=== PATIENT | female | born 1955 | race Caucasian/White ===

== ENCOUNTER 2020-08-12 14:15 | Outpatient (REF) | payer OTHER, SELFPAY ==
--- NOTE | 2020-08-12 14:19 | FL_ITS ---
EXAMINATION: FL BARIUM SWALLOW CLINICAL INFORMATION: Dysphagia COMPARISON: None TECHNIQUE: Patient's swallowing mechanism was assessed in conjunction with speech therapist utilizing fluoroscopic evaluation. Multiple cine loops were recorded. FINDINGS: Anterior cervical fusion hardware is noted at C5-C6. Various consistencies of barium were administered orally. No evidence of tracheal aspiration or laryngeal penetration was noted. No retention of barium was noted in the vallecula or piriform sinuses. Occasional premature spillage of barium in vallecula was noted. FLUOROSCOPY TIME: 1 minute DOSE AREA PRODUCT: 0.922 Gy-cm2 (terry centimeter squared) IMPRESSION: No evidence of laryngeal penetration or tracheal aspiration was noted. Follow speech therapist's notes for detailed description.
== END 2020-08-12 14:16 | disposition home or self-care (01) ==
LOC: HO.XRAY 14:15
PROVIDERS: Visit Provider Nurse Practitioner
DX: R13.12 Dysphagia, oropharyngeal phase (principal); G35 Multiple sclerosis
CPT/HCPCS: 74230; 92611

== ENCOUNTER → 2020-10-28 09:41 | Outpatient (BNVA) | payer OTHER, SELFPAY | PROVIDERS: Visit Provider Nurse Practitioner | DX: K21.9 Gastro-esophageal reflux disease without esophagitis (principal); K58.2 Mixed irritable bowel syndrome; R13.12 Dysphagia, oropharyngeal phase | CPT/HCPCS: Q3014 ==

== ENCOUNTER → 2021-01-25 10:46 | Outpatient (BNVA) | payer OTHER, SELFPAY | PROVIDERS: PCP Student in an Organized Health Care Education/Training Program; Visit Provider Nurse Practitioner | DX: Z13.89 Encounter for screening for other disorder (principal) | CPT/HCPCS: Q3014 ==

== ENCOUNTER → 2021-04-19 09:58 | Outpatient (BNVA) | payer OTHER, SELFPAY | PROVIDERS: Visit Provider Nurse Practitioner | DX: K59.04 Chronic idiopathic constipation (principal); K21.9 Gastro-esophageal reflux disease without esophagitis; R13.12 Dysphagia, oropharyngeal phase; R10.9 Unspecified abdominal pain | CPT/HCPCS: Q3014 ==

== ENCOUNTER → 2021-10-18 14:03 | Outpatient (BNVA) | payer OTHER, SELFPAY | PROVIDERS: Visit Provider Nurse Practitioner | DX: K59.04 Chronic idiopathic constipation (principal); K21.9 Gastro-esophageal reflux disease without esophagitis; K30 Functional dyspepsia; R13.12 Dysphagia, oropharyngeal phase; R10.9 Unspecified abdominal pain | CPT/HCPCS: 99212 ==

== ENCOUNTER → 2021-12-30 11:43 | Outpatient (BNVA) | payer OTHER, SELFPAY | PROVIDERS: Visit Provider Nurse Practitioner | DX: K59.04 Chronic idiopathic constipation (principal); K30 Functional dyspepsia; K21.9 Gastro-esophageal reflux disease without esophagitis | CPT/HCPCS: 99212 ==

== ENCOUNTER → 2022-01-13 12:41 | Outpatient (BNVA) | payer OTHER, SELFPAY | PROVIDERS: Visit Provider Nurse Practitioner | DX: K59.04 Chronic idiopathic constipation (principal); K58.2 Mixed irritable bowel syndrome; K30 Functional dyspepsia; K14.0 Glossitis; E11.22 Type 2 diabetes mellitus with diabetic chronic kidney disease; I12.9 Hypertensive chronic kidney disease with stage 1 through stage 4 chronic kidney disease, or unspecified chronic kidney disease; N18.9 Chronic kidney disease, unspecified; Z87.891 Personal history of nicotine dependence; Z88.8 Allergy status to other drugs, medicaments and biological substances; Z88.6 Allergy status to analgesic agent; Z88.0 Allergy status to penicillin; Z91.013 Allergy to seafood | CPT/HCPCS: 99212 ==

== ENCOUNTER 2022-02-24 08:17 | Day surgery (SDC) | payer OTHER, SELFPAY ==
[2022-02-18 13:58] VITALS: BMI 20.9
--- NOTE | 2022-02-23 11:53 | P.CONAN_ITS ---
Documented by User: Dionne Hugo NP 02/23/22 11:54 HPI - Anesthesia Eval Consult details Narrative: 66yo F for Upper Endoscopy and Colonoscopy *Multiple Allergies* PMFSH Active Problems Active Problems: All Active Problems (Updated 10/18/21 @ 15:08 by JOSH Perez) Oropharyngeal dysphagia (Acute) Chronic idiopathic constipation (Acute) Abdominal cramping (Acute) Delayed gastric emptying (Acute) GERD (gastroesophageal reflux disease) (Acute) Past Medical History Medical History Asthma Bipolar 1 disorder Chronic renal disease Diabetes Elevated cholesterol Fibromyalgia Gastroparesis GERD (gastroesophageal reflux disease) History of bronchiolitis obliterans with organizing pneumonia HTN (hypertension) Hx MRSA infection Hx of cervical cancer Hx of Clostridium difficile infection Irritable bowel syndrome Irritable bowel syndrome with both constipation and diarrhea Lung mass Multiple sclerosis Osteopenia Rheumatoid arthritis Family History Family History Other Diabetes Heart problem Skin cancer Surgical History Surgical History (Updated 02/18/22 @ 13:43 by Dolly Desai RN) History of carpal tunnel release History of esophagogastroduodenoscopy (EGD) History of Luan fundoplication History of partial colectomy History of repair of hip fracture Hx of colonoscopy Hx of cornea transplant Hx of discectomy Hx of hysterectomy Hx of knee surgery Hx of repair of left rotator cuff Hx of splenectomy Social History Social History Alcohol intake: current Alcohol intake frequency: holidays/special occasions only Patient Tobacco Use Status: Former Tobacco user Tobacco use type: Cigarette Use of substances other than those prescribed or required for medical reasons: Yes Substance Use Type: Marijuana Advance Directives Information Provided: Yes Advance Directives on File: Yes Advance Directives Date on File: 03/28/13 Meds Allergies Allergy/AdvReac Type Severity Reaction Status Date / Time clams Allergy Intermediate Hives Verified 02/18/22 13:44 methylprednisolone Allergy Intermediate HIVES Verified 02/18/22 13:44 [From Solu-Medrol] morphine [MORPHINE] Allergy Intermediate HIVES Verified 02/18/22 13:44 Penicillins Allergy Intermediate HIVES Verified 02/18/22 13:44 prednisone [Prednisone] Allergy Intermediate HIVES Verified 02/18/22 13:44 terbinafine [Lamisil] Allergy Intermediate Rash Verified 02/18/22 13:44 From TORADOL Allergy Intermediate HIVES Uncoded 02/18/22 13:44 Home Medications Medication Instructions Recorded Confirmed Last Taken Type acetaminophen 325 mg tablet 2 tab PO Q4H PRN 10/02/20 10/02/20 Unknown History albuterol sulfate 90 mcg/actuation 1 puff PO QID PRN 10/02/20 10/02/20 Unknown History aerosol inhaler cyclobenzaprine 5 mg tablet 1 tab PO BEDTIME 10/02/20 10/02/20 Unknown History diclofenac sodium 1 % topical gel g TOPICAL QID 10/02/20 Unknown History divalproex 250 mg tablet,extended 2 tab PO DAILY 10/02/20 10/02/20 Unknown History release 24 hr escitalopram oxalate 20 mg tablet 1 tab PO DAILY 10/02/20 10/02/20 Unknown History fluticasone 500 mcg-salmeterol 50 1 puff PO BID 10/02/20 10/02/20 Unknown Histo ry mcg/dose blistr powdr for inhalation (Wixela Inhub) fluticasone propionate 50 1 spray INTRANASAL DAILY 10/02/20 10/02/20 Unknown History mcg/actuation nasal spray,suspension insulin aspart U-100 100 unit/mL 10 - 35 unit SUBCUT 10/02/20 Unknown History (3 mL) subcutaneous pen (Novolog Flexpen U-100 Insulin aspart) insulin glargine 100 unit/mL (3 42 unit SUBCUT BEDTIME 10/02/20 10/02/20 Unknown History mL) subcutaneous pen (Lantus Solostar U-100 Insulin) ketotifen fumarate 0.025 % (0.035 1 drp OPHTHALMIC (EYE) Q12H 10/02/20 10/02/20 Unknown History %) eye drops lisinopril 5 mg tablet 1 tab PO DAILY 10/02/20 10/02/20 Unknown History loratadine 10 mg tablet 1 tab PO DAILY 10/02/20 10/02/20 Unknown History lorazepam 1 mg tablet 1 tab PO BEDTIME 10/02/20 10/02/20 Unknown History metformin 500 mg tablet,extended 1 tab PO BID 10/02/20 10/02/20 Unknown History release 24 hr multivitamin (Daily-Darek) 1 tab PO DAILY 10/02/20 10/02/20 Unknown History quetiapine 100 mg tablet 1 tab PO BEDTIME 10/02/20 10/02/20 Unknown History rosuvastatin 20 mg tablet 1 tab PO DAILY 10/02/20 10/02/20 Unknown History zolpidem 10 mg tablet 1 tab PO BEDTIME PRN 10/02/20 10/02/20 Unknown History calcium carbonate 500 mg-vitamin 1 tab PO BID 01/13/22 Unknown History D3 10 mcg (400 unit) tablet (Calcium 500 With D) dulaglutide 0.75 mg/0.5 mL 0.75 mg SUBCUT QWEEK 01/13/22 Unknown History subcutaneous pen injector (Trulicity) gabapentin 100 mg capsule 100 mg PO TID 01/13/22 Unknown History multivitamin with folic acid 400 1 tab PO DAILY 01/13/22 Unknown History mcg tablet (Daily-Darek (with folic acid)) tiotropium bromide 1.25 2 puff INHALATION DAILY 01/13/22 Unknown History mcg/actuation mist for inhalation (Spiriva Respimat) Exam Exam Date and Time: February 23, 2022 1153 Height,Weight and Vital Signs: Height 5 ft 4 in Weight 55.338 kg Assessment and Plan Assessment Anesthesia Assessment: Chart Reviewed Documented by User: Madeleine Go MD 02/24/22 08:28 [facility] Past Medical History Medical History Asthma Bipolar 1 disorder Chronic renal disease Diabetes Elevated cholesterol Fibromyalgia Gastroparesis GERD (gastroesophageal reflux disease) History of bronchiolitis obliterans with organizing pneumonia HTN (hypertension) Hx MRSA infection Hx of cervical cancer Hx of Clostridium difficile infection Irritable bowel syndrome Irritable bowel syndrome with both constipation and diarrhea Lung mass Multiple sclerosis Osteopenia Rheumatoid arthritis Functional capacity: uses cane/walker Patient : No Family History Family History Other Diabetes Heart problem Skin cancer Family history of problems with anesthesia: No Surgical History Surgical History (Updated 02/18/22 @ 13:43 by Dolly Desai RN) History of carpal tunnel release History of esophagogastroduodenoscopy (EGD) History of Luan fundoplication History of partial colectomy History of repair of hip fracture Hx of colonoscopy Hx of cornea transplant Hx of discectomy Hx of hysterectomy Hx of knee surgery Hx of repair of left rotator cuff Hx of splenectomy History of Problems with Anesthesia: No Social History Social History Alcohol intake: current Alcohol intake frequency: holidays/special occasions only Patient Tobacco Use Status: Former Tobacco user Tobacco use type: Cigarette Use of substances other than those prescribed or required for medical reasons: Yes Substance Use Type: Marijuana Advance Directives Information Provided: Yes Advance Directives on File: Yes Advance Directives Date on File: 03/28/13 Meds Allergies Allergy/AdvReac Type Severity Reaction Status Date / Time clams Allergy Intermediate Hives Verified 02/18/22 13:44 methylprednisolone Allergy Intermediate HIVES Verified 02/18/22 13:44 [From Solu-Medrol] morphine [MORPHINE] Allergy Intermediate HIVES Verified 02/18/22 13:44 Penicillins Allergy Intermediate HIVES Verified 02/18/22 13:44 prednisone [Prednisone] Allergy Intermediate HIVES Verified 02/18/22 13:44 terbinafine [Lamisil] Allergy Intermediate Rash Verified 02/18/22 13:44 From TORADOL Allergy Intermediate HIVES Uncoded 02/18/22 13:44 Home Medications Medication Instructions Recorded Confirmed Last Taken Type acetaminophen 325 mg tablet 2 tab PO Q4H PRN 10/02/20 10/02/20 Unknown History albuterol sulfate 90 mcg/actuation 1 puff PO QID PRN 10/02/20 10/02/20 Unknown History aerosol inhaler cyclobenzaprine 5 mg tablet 1 tab PO BEDTIME 10/02/20 10/02/20 Unknown History diclofenac sodium 1 % topical gel g TOPICAL QID 10/02/20 Unknown History divalproex 250 mg tablet,extended 2 tab PO DAILY 10/02/20 10/02/20 Unknown History release 24 hr escitalopram oxalate 20 mg tablet 1 tab PO DAILY 10/02/20 10/02/20 Unknown History fluticasone 500 mcg-salmeterol 50 1 puff PO BID 10/02/20 10/02/20 Unknown History mcg/dose blistr powdr for inhalation (Wixela Inhub) fluticasone propionate 50 1 spray INTRANASAL DAILY 10/02/20 10/02/20 Unknown History mcg/actuation nasal spray,suspension insulin aspart U-100 100 unit/mL 10 - 35 unit SUBCUT 10/02/20 Unknown History (3 mL) subcutaneous pen (Novolog Flexpen U-100 Insulin aspart) insulin glargine 100 unit/mL (3 42 unit SUBCUT BEDTIME 10/02/20 10/02/20 Unknown History mL) subcutaneous pen (Lantus Solostar U-100 Insulin) ketotifen fumarate 0.025 % (0.035 1 drp OPHTHALMIC (EYE) Q12H 10/02/20 10/02/20 Unknown History %) eye drops lisinopril 5 mg tablet 1 tab PO DAILY 10/02/20 10/02/20 Unknown History loratadine 10 mg tablet 1 tab PO DAILY 10/02/20 10/02/20 Unknown History lorazepam 1 mg tablet 1 tab PO BEDTIME 10/02/20 10/02/20 Unknown History metformin 500 mg tablet,extended 1 tab PO BID 10/02/20 10/02/20 Unknown History release 24 hr multivitamin (Daily-Darek) 1 tab PO DAILY 10/02/20 10/02/20 Unknown History quetiapine 100 mg tablet 1 tab PO BEDTIME 10/02/20 10/02/20 Unknown History rosuvastatin 20 mg tablet 1 tab PO DAILY 10/02/20 10/02/20 Unknown History zolpidem 10 mg tablet 1 tab PO BEDTIME PRN 10/02/20 10/02/20 Unknown History calcium carbonate 500 mg-vitamin 1 tab PO BID 01/13/22 Unknown History D3 10 mcg (400 unit) tablet (Calcium 500 With D) dulaglutide 0.75 mg/0.5 mL 0.75 mg SUBCUT QWEEK 01/13/22 Unknown History subcutaneous pen injector (Trulicity) gabapentin 100 mg capsule 100 mg PO TID 01/13/22 Unknown History multivitamin with folic acid 400 1 tab PO DAILY 01/13/22 Unknown History mcg tablet (Daily-Darek (with folic acid)) tiotropium bromide 1.25 2 puff INHALATION DAILY 01/13/22 Unknown History mcg/actuation mist for inhalation (Spiriva Respimat) Exam Airway Mallampati Class: II TM Dist: >3cm Neck ROM: Full Heart: RRR Lungs: CTA Assessment and Plan Final Anesthetic Review Family History of Problems with Anesthesia: No History of Problems with Anesthesia: No ASA Class: III Final Preanesthetic Review: No Changes in Pt Med Stat, Meds/Allgs Chart Reviewed, Consent Obtained/Reviewed and Anes Risks/Benef Reviewed Patient Risk: Low Procedure Risk: Low Anesthetic Plan Anesthetic Plan: MAC: Disposition: Standard PACU
[2022-02-24 08:39] VITALS: BP 146/80; PULSE 84; RESP 16; TEMP 36.3; O2SAT 98
[2022-02-24] MEDS: Lactated Ringers 1,000 ML 100 ML IVCONT (08:49)
[2022-02-24 08:54] LABS: Glucose, Whole Blood 92 mg/dL (60-115)
--- NOTE | 2022-02-24 09:07 | P.HPSUR_ITS ---
Pre-Procedural Eval Section A Date of Service: 02/24/22 Section B Chief Complaint: Functional dyspepsia,abnormal bowel habit Relevant Family History (Specify if Yes): No Relevant Social History: Other (specify) (thc use) Present Medications: see Short Stay Collaborative assessment Medical History: Significant History (Asthma Bipolar 1 disorder Chronic renal disease Diabetes Elevated cholesterol Fibromyalgia Gastroparesis GERD (gastroesophageal reflux disease) History of bronchiolitis obliterans with organizing pneumonia HTN (hypertension) Hx MRSA infection Hx of cervical cancer Hx of Clostridium difficile infecti) History of Previous Operations: Relevant previous surgery/procedure and date(s) (History of carpal tunnel release History of esophagogastroduodenoscopy (EGD) H istory of Luan fundoplication History of partial colectomy History of repair of hip fracture Hx of colonoscopy Hx of cornea transplant Hx of discectomy Hx of hysterectomy Hx of knee surgery Hx of repair of left rotator c) Allergies: Allergies Allergy/AdvReac Type Severity Reaction Status Date / Time clams Allergy Intermediate Hives Verified 02/18/22 13:44 methylprednisolone Allergy Intermediate HIVES Verified 02/18/22 13:44 [From Solu-Medrol] morphine [MORPHINE] Allergy Intermediate HIVES Verified 02/18/22 13:44 Penicillins Allergy Intermediate HIVES Verified 02/18/22 13:44 prednisone [Prednisone] Allergy Intermediate HIVES Verified 02/18/22 13:44 terbinafine [Lamisil] Allergy Intermediate Rash Verified 02/18/22 13:44 From TORADOL Allergy Intermediate HIVES Uncoded 02/18/22 13:44 Review of Systems Sugical H&P ROS: Negative: Constitution, Cardiovascular, Respiratory, Neurological, Psychiatric, Hem-Onc, Allergic/Immunologic, Gastrointestinal, Genitourinary, Musculoskeletal, Integumentary, Endocrine and Eyes/Ears/Nose/Throat Exam Surgical H&P Exam: Normal: HEENT, Normal: Heart, Normal: Lungs, Normal: Extremities, Normal: Abdomen, Normal: Skin and Normal: Neurological Plan Diagnosis/Plan: Unchanged I have reviewed the history and physical and performed a pertinent physical examination on my patient. No changes have occurred unless specified.
--- NOTE | 2022-02-24 09:11 | PM.OP ---
Brief Operative Note Date of Service: 02/24/22 Pre-op diagnosis: Functional dyspepsia,abnormal bowel habit Post-op diagnosis: same Procedure: see op note Surgeon: Delicia Ross MD Anesthesia: MAC Was an Solid Waste Facility Operator used for this Procedure?: No Estimated blood loss (mL): 0 Condition: stable Disposition: PACU
--- NOTE | 2022-02-24 09:12 | P.OP_ITS ---
Operative Note Operative Note Date of Service: 02/24/22 Narrative: Operative Information Procedure Description: EGD, Colonoscopy Indication: Functional dyspepsia,abnormal bowel habit Anesthesia: MAC FLEXIBLE TRANSORAL UPPER GASTROINTESTINAL ENDOSCOPY AND COLONOSCOPY PROCEDURE NOTE UPPER ENDOSCOPY Consent: Indications for the procedure and potential complications of bleeding, perforation, reaction to medications and missed diagnosis were discussed with the patient and informed consent was obtained. Instrument: Olympus GIF H 190 J mid size upper endoscope Monitoring: Vital signs and clinical assessment, continuous EKG monitoring, Pulse oximetry, Carbon Dioxide monitoring and blood pressure monitoring were done throughout the procedure. Procedure: The patient was placed in the left lateral decubitis position and pre-procedure medications were administered and a bite block was placed. The endoscope was inserted into the mouth and advanced under direct vision to the third part of duodenum. A careful inspection was made as the upper endoscope was withdrawn including a retroflexed examination of the proximal stomach; Findings and interventions are described below. Findings: Larynx:normal Esophagus: GE junction at 40 cm, diaphragm hiatus at 40 cm, one tongue of suspected short segment Barretts, bx taken as well as random esophagus bx Stomach: Streaky erythema in antrum and distal bodt of stomach. Biopsies were obtained. Grade 2 flap valve on retroflexed examination of the cardia with prior fundoplication noted Duodenum: Normal bulb and descending duodenum, bx taken Intervention: Biopsies as noted above COLONOSCOPY Instrument: Olympus variable stiffness pediatric scope 190L Colonoscopy Monitoring: Vital signs and clinical assessment, continuous EKG monitoring, Pulse oximetry, Carbon Dioxide monitoring and blood pressure monitoring were done throughout the procedure. Colon withdrawal time was 13 minutes. Procedure: The patient was placed in the left lateral decubitis position and pre-procedure medications were administered. After a digital rectal examination of the ano-rectum, the video colonoscope was inserted into the rectum and advanced through the colon to the cecum/TI. The colonoscope was slowly withdrawn in a retrograde panoramic fashion and the colon mucosa was carefully examined including a retroflexed view of the rectum. Findings and interventions are described below. Procedure Difficulty: easy Findings: end to side ileo colonic anastomosis noted Ascending Colon: normal Transverse Colon -normal Descending Colon:10 mm sessile polyp removed with cold snare Sigmoid Colon: normal Rectum: Retroflexion with smll internal hemorrhoids, grade I Anorectum - normal Colon preparation: Juliaetta Bowel Preparation Scale Right colon; 2 Transverse colon: 1 Left colon; 1 (0 = Unprepared colon segment with mucosa not seen due to solid stool that cannot be cleared. 1 = Portion of mucosa of the colon segment seen, but other areas of the colon segment not well seen due to staining, residual stool and/or opaque liquid. 2 = Minor amount of residual staining, small fragments of stool and/or opaque liquid, but mucosa of colon segment seen well. 3 = Entire mucosa of colon segment seen well with no residual staining, small fragments of stool or opaque liquid) Impression and Post Procedure Diagnosis: Endoscopy Findings: gastritis s/p fundoplication possible barretts esophagus Colonoscopy Findings: polyp internal hemorrhoids s/p partial colectomy and ileocolonic anastomosis Plan: Await Pathology results Repeat Colonoscopy in 1 year due to prep or earlier if clinically indicated High fiber diet leaflet avoid straining at stool, epsom salts and sitz bath, anusol supps or cream If H pylori pos then treat if sx persist inspite of PPI therapy then consider repeat GES (last one 2014 was normal) Above findings were reviewed with the patient and relevant handouts were provided if indicated.
[2022-02-24 10:16] VITALS: BP 129/78; PULSE 85; RESP 16; TEMP 36.3; O2SAT 94
[2022-02-24 10:31] VITALS: BP 155/66; PULSE 84; RESP 16; TEMP 36.6; O2SAT 100
[2022-02-24] MEDS: Acetaminophen 325 MG TABLET 650 MG PO (10:38)
--- NOTE | 2022-02-24 12:17 | HO.POSTANES ---
Post Anesthesia Evaluation Post Anesthesia Evaluation Vital Signs: Vital Signs Temp Pulse Resp BP Pulse Ox 02/24/22 10:31 97.9 F 84 16 155/66 H 100 02/24/22 10:16 97.3 F 85 16 129/78 94 02/24/22 08:39 97.3 F 84 16 146/80 H 98 Anesthesia: Monitored Mental Status: Awake Pain Control: Satisfactory Nausea/Vomiting: None Hydration: Adequate Anesthesia-Related Issues: No Anes. Related Issues
== END 2022-02-24 11:10 | disposition home or self-care (01) ==
PROVIDERS: Visit Provider Internal Medicine Gastroenterology
PROC: (CPT 45385; principal; 2022-02-24 09:20)
DX: R19.4 Change in bowel habit (principal); K63.5 Polyp of colon; K64.0 First degree hemorrhoids; Z90.49 Acquired absence of other specified parts of digestive tract; Z98.0 Intestinal bypass and anastomosis status; K30 Functional dyspepsia; K21.9 Gastro-esophageal reflux disease without esophagitis; K29.50 Unspecified chronic gastritis without bleeding; K44.9 Diaphragmatic hernia without obstruction or gangrene; Z98.890 Other specified postprocedural states; J45.909 Unspecified asthma, uncomplicated; I10 Essential (primary) hypertension; E78.00 Pure hypercholesterolemia, unspecified; M79.7 Fibromyalgia; F31.9 Bipolar disorder, unspecified; F12.90 Cannabis use, unspecified, uncomplicated; Z87.891 Personal history of nicotine dependence; Z86.14 Personal history of Methicillin resistant Staphylococcus aureus infection; Z86.19 Personal history of other infectious and parasitic diseases
CPT/HCPCS: 45385; 43239; 82947; 88305; 88342

== ENCOUNTER → 2022-04-14 11:57 | Outpatient (BNVA) | payer OTHER, SELFPAY | PROVIDERS: Visit Provider Nurse Practitioner | DX: K59.04 Chronic idiopathic constipation (principal); K30 Functional dyspepsia; K21.9 Gastro-esophageal reflux disease without esophagitis; K22.70 Barrett's esophagus without dysplasia; Z79.899 Other long term (current) drug therapy | CPT/HCPCS: 99212 ==

== ENCOUNTER → 2022-09-06 13:47 | Outpatient (BNVA) | payer OTHER, SELFPAY | PROVIDERS: PCP Internal Medicine; Visit Provider Nurse Practitioner | DX: K21.9 Gastro-esophageal reflux disease without esophagitis (principal); K30 Functional dyspepsia; K59.04 Chronic idiopathic constipation; K22.70 Barrett's esophagus without dysplasia; B37.81 Candidal esophagitis; B37.0 Candidal stomatitis | CPT/HCPCS: 99212 ==